=== PATIENT | female | born 1995 | race Caucasian/White ===

== ENCOUNTER 2018-01-16 00:55 | Emergency (ER) | payer BC, OTHER ==
[2018-01-16 01:54] LABS: ABSOLUTE BASOPHILS # (AUTO) 0.1 10^3/uL (0.0-0.2); ABSOLUTE EOSINOPHILS # (AUTO) 0.2 10^3/uL (0.0-0.6); ABSOLUTE LYMPHOCYTES (AUTO) 1.8 10^3/uL (0.5-4.7); ABSOLUTE MONOCYTES (AUTO) 0.4 10^3/uL (0.1-1.4); ABSOLUTE NEUT (AUTO) 4.7 10^3/uL (1.7-8.2); BASOPHILS % (AUTO) 0.8 % (0-2); EOSINOPHILS % (AUTO) 2.4 % (0-6); HEMATOCRIT 34.1 % (36.0-47.0); LYMPHOCYTES % (AUTO) 25.5 % (13-45); MEAN CORPUSCULAR HEMOGLOBIN 31.9 pg (27.0-33.4); MEAN CORPUSCULAR HGB CONC 35.3 g/dL (32.0-36.0); MEAN CORPUSCULAR VOLUME 91 fl (80-97); PLATELET COUNT 218 10^3/uL (150-450); RED BLOOD COUNT 3.76 10^6/uL (3.72-5.28); RED CELL DISTRIBUTION WIDTH 13.6 % (11.5-14.0); SEGMENTED NEUTROPHILS % (AUTO) 65.3 % (42-78); TOTAL CELLS COUNTED % (AUTO) 100 %; WHITE BLOOD COUNT 7.2 10^3/uL (4.0-10.5)
[2018-01-16 02:10] LABS: ALANINE AMINOTRANSFERASE 21 U/L (9-52); ALBUMIN 4.1 g/dL (3.5-5.0); ALKALINE PHOSPHATASE 36 U/L (38-126); ANION GAP 12 (5-19); ASPARTATE AMINO TRANSFERASE 19 U/L (14-36); BILIRUBIN,DIRECT 0.2 mg/dL (0.0-0.4); BILIRUBIN,TOTAL 0.3 mg/dL (0.2-1.3); BLOOD UREA NITROGEN 12 mg/dL (7-20); CALCIUM 9.6 mg/dL (8.4-10.2); CARBON DIOXIDE 23 mmol/L (22-30); CHLORIDE 104 mmol/L (98-107); GLUCOSE 100 mg/dL (75-110); LIPASE 66.3 U/L (23-300); SODIUM 139.2 mmol/L (137-145); TOTAL PROTEIN 6.9 g/dL (6.3-8.2)
[2018-01-16] MEDS ORDERED: NORMAL SALINE 1000 ML 1,000 ML IV ONE (02:56)
[2018-01-16] MEDS ORDERED: METOCLOPRAMIDE HCL INJ/PF 10 MG/2 ML SDV IV ONE (03:01)
--- NOTE | 2018-01-16 03:02 | RADIOLOGY REPORT (SQ) ---
EXAM DESCRIPTION: US TRANSVAGINAL COMPLETED DATE/TME: 01/16/2018 01:24 CLINICAL HISTORY: 22 years Female, , bleeding Comparison: None. TECHNIQUE: Transvaginal. LIMITATIONS: None. FINDINGS: Living intrauterine fetus measures 11w3d with JIMENEZ of 08/14/2018. Cardiac activity is 175-bpm. Herndon-rump length is 4.5-cm. Ovaries not discerned, 3-cm cervical length, and no free fluid. IMPRESSION: Living 1st trimester intrauterine gestation. No evidence of complication.
--- NOTE | 2018-01-16 03:02 | ER Document Report ---
ED GI/ - General Mode of Arrival: Ambulatory Information source: Patient TRAVEL OUTSIDE OF THE [place] IN LAST 30 DAYS: No <KENTON BOO - Last Filed: 01/16/18 03:25> <DAYLIN ARREAGA - Last Filed: 01/16/18 05:37> - General Chief Complaint: Vag Bleeding, +preg <12wks Stated Complaint: ABDOMINAL PAIN Time Seen by Provider: 01/16/18 01:35 Notes: 22-year-old female that is 11 weeks that presents to the emergency department today with complaints of vaginal bleeding and abdominal pain. Patient states that she has had more bleeding than during a normal period. Patient states she has an appointment with OB on . Patient states she has had intercourse this week and had no bleeding after. Patient has had associated vomiting and diarrhea but denies any urinary symptoms or fevers. ( KENTON BOO) - Related Data Allergies/Adverse Reactions: No Known Allergies Allergy (Verified 02/27/16 14:14) Past Medical History - General Information source: Patient - Social History Smoking Status: Never Smoker Cigarette use (# per day): No Frequency of alcohol use: None Drug Abuse: None Lives with: Family Family History: Reviewed & Not Pertinent <KENTON BOO - Last Filed: 01/16/18 03:25> Review of Systems - Review of Systems Constitutional: denies: Fever EENT: No symptoms reported Cardiovascular: No symptoms reported Respiratory: No symptoms reported Gastrointestinal: See HPI, Abdominal pain, Diarrhea, Vomiting Genitourinary: denies: Dysuria Female Genitourinary: See HPI, , Vaginal bleeding, Other - Recent intercourse Musculoskeletal: No symptoms reported Skin: No symptoms reported Hematologic/Lymphatic: No symptoms reported Neurological/Psychological: No symptoms reported -: Yes All other systems reviewed and negative <KENTON BOO - Last Filed: 01/16/18 03:25> Physical Exam <KENTON BOO - Last Filed: 01/16/18 03:25> - Vital signs Interpretation: Normal - General General appearance: Appears well, Alert - HEENT Head: Normocephalic, Atraumatic Eyes: Normal Pupils: PERRL - Respiratory Respiratory status: No respiratory distress Chest status: Nontender Breath sounds: Normal Chest palpation: Normal - Cardiovascular Rhythm: Regular Heart sounds: Normal auscultation Murmur: No - Abdominal Inspection: Normal Distension: No distension Bowel sounds: Normal Tenderness: Tender - Mild suprapubic TTP Organomegaly: No organomegaly - Back Back: Normal, Nontender - Extremities General upper extremity: Normal inspection, Nontender, Normal color, Normal ROM , Normal temperature General lower extremity: Normal inspection, Nontender, Normal color, Normal ROM , Normal temperature, Normal weight bearing. No: Yessica's sign - Neurological Neuro grossly intact: Yes Cognition: Normal Orientation: AAOx4 Paron Coma Scale Eye Opening: Spontaneous Paron Coma Scale Verbal: Oriented Harpal Coma Scale Motor: Obeys Commands Harpal Coma Scale Total: 15 Speech: Normal Motor strength normal: LUE, RUE, LLE, RLE Sensory: Normal - Psychological Associated symptoms: Normal affect, Normal mood - Skin Skin Temperature: Warm Skin Moisture: Dry Skin Color: Normal <DAYLIN ARREAGA - Last Filed: 01/16/18 05:37> - Vital signs Vitals: Temp Pulse Resp BP Pulse Ox 99 F 90 16 128/64 H 100 01/16/18 01:02 01/16/18 01:02 01/16/18 01:02 01/16/18 01:02 01/16/18 01:02 - Genitourinary Notes: Deferred (DAYLIN ARREAGA) Course - Laboratory Result Diagrams: 01/16/18 01:40 01/16/18 01:40 <KENTON BOO - Last Filed: 01/16/18 03:25> - Laboratory Result Diagrams: 01/16/18 01:40 01/16/18 01:40 - Diagnostic Test Radiology reviewed: Reports reviewed <DAYLIN ARREAGA - Last Filed: 01/16/18 05:37> - Re-evaluation Re-evalutation: 01/16/18 Patient is a 22-year-old who comes in complaining of vaginal bleeding and mild suprapubic discomfort. Blood work within normal limits. RhoGam not indicated. Patient denies any urinary symptoms. Urine culture will be sent. He was much better after Reglan and fluids. Patient is to follow-up with her [facility] this week. She has been given a copy of blood work and ultrasound report. She is not to put anything in her vagina until she sees her management specialist. Understands agrees with plan. Would like to go home. Stable for discharge. (DAYLIN ARREAAG) - Vital Signs Vital signs: Temp Pulse Resp BP Pulse Ox 98.6 F 69 18 93/56 L 100 01/16/18 05:06 01/16/18 05:06 01/16/18 05:06 01/16/18 05:06 01/16/18 05:06 - Laboratory Laboratory results interpreted by me: 01/16/18 01/16/18 01/16/18 01:40 01:40 02:47 Hct 34.1 L Alkaline Phosphatase 36 L Beta HCG, Quant 921395.00 H Urine Blood LARGE H Discharge <KENTON BOO - Last Filed: 01/16/18 03:25> <DAYLIN ARREAGA - Last Filed: 01/16/18 05:37> - Discharge Clinical Impression: Bleeding in early Condition: Stable Disposition: HOME, SELF-CARE Instructions: Bleeding During Early ([facility]) Additional Instructions: Follow-up with your [facility] this week. Do not put anything in your vagina until you see your management specialist. Referrals: JOSEFINA LICONA MD [ACTIVE STAFF] - Follow up in 3-5 days Scribe Attestation: 01/16/18 05:37 I personally performed the services described in the documentation, reviewed and edited the documentation which was dictated to the scribe in my presence, and it accurately records my words and actions. (DAYLIN ARREAGA) Scribe Documentation - Scribe Written by Jennifer:: Jennifer Lemus, 01/16/2018 [id number] acting as scribe for :: Altaf <KENTON BOO - Last Filed: 01/16/18 03:25>
[2018-01-16 03:04] LABS: APPEARANCE,URINE CLEAR; BILIRUBIN,URINE NEGATIVE (NEGATIVE); COLOR,URINE STRAW; GLUCOSE, URINE NEGATIVE (NEGATIVE); KETONES,URINE NEGATIVE (NEGATIVE); LEUKOCYTE ESTERASE,URINE NEGATIVE (NEGATIVE); NITRITE,URINE NEGATIVE (NEGATIVE); PROTEIN,URINE NEGATIVE (NEGATIVE); URINE SPECIFIC GRAVITY 1.009; UROBILINOGEN,URINE NEGATIVE mg/dL (<2.0)
[2018-01-16 05:08] VITALS: BP 93/56
== END 2018-01-16 04:57 | disposition home or self-care (01) ==
LOC: ER 00:55
DX: O20.9 Hemorrhage in early pregnancy, unspecified (principal); O21.9 Vomiting of pregnancy, unspecified; O26.891 Other specified pregnancy related conditions, first trimester; R10.30 Lower abdominal pain, unspecified; R19.7 Diarrhea, unspecified; Z3A.11 11 weeks gestation of pregnancy
CPT/HCPCS: 99284; 96361; 96374; 86900; 86901; 36415; 87086; 84702; 83690; 85025; 80053; 81001; 76817; J2765; J7030

== ENCOUNTER 2018-08-04 18:24 | Inpatient (IN) | payer BC, OTHER ==
[2018-08-04] MEDS ORDERED: RINGERS SOLUTION,LACTATED 1,000 ML IV ONE (19:14)
[2018-08-04] MEDS ORDERED: PENICILLIN G POTASSIUM 5,000,000 UNIT in DEXTROSE 5%-WATER 100 ML IV ONE (19:14)
[2018-08-04] MEDS ORDERED: RINGERS SOLUTION,LACTATED 1,000 ML IV PRN (19:14)
[2018-08-04] MEDS ORDERED: PENICILLIN G-K 5 MILLION UNIT VIAL ONE ×2 (19:15→22:34)
[2018-08-04 19:26] LABS: APPEARANCE,URINE CLEAR; BILIRUBIN,URINE NEGATIVE (NEGATIVE); COLOR,URINE YELLOW; GLUCOSE, URINE NEGATIVE (NEGATIVE); KETONES,URINE TRACE mg/dL (NEGATIVE); LEUKOCYTE ESTERASE,URINE SMALL (NEGATIVE); NITRITE,URINE NEGATIVE (NEGATIVE); PROTEIN,URINE NEGATIVE (NEGATIVE); URINE SPECIFIC GRAVITY 1.014; UROBILINOGEN,URINE NEGATIVE mg/dL (<2.0)
[2018-08-04] MEDS ORDERED: MISOPROSTOL 0.2 MG TABLET ONE (19:29)
[2018-08-04] MEDS ORDERED: OXYTOCIN 10 UNIT/ML VIAL ONE (19:29)
[2018-08-04] MEDS ORDERED: LIDOCAINE 1% INJ-PF (10 MG/ML) 30 ML SDV ONE (19:30)
[2018-08-04] MEDS ORDERED: OXYTOCIN/NORMAL SALINE 20 UNIT/1,000 ML RTUINJ ONE (19:30)
[2018-08-04 19:41] LABS: URINE AMPHETAMINES SCREEN NEGATIVE; URINE BARBITURATES SCREEN NEGATIVE; URINE BENZODIAZEPINES SCREEN NEGATIVE; URINE COCAINE SCREEN NEGATIVE; URINE MARIJUANA (THC) SCREEN NEGATIVE; URINE METHADONE SCREEN NEGATIVE; URINE PHENCYCLIDINE SCREEN NEGATIVE
[2018-08-04 19:43] LABS: ABSOLUTE BASOPHILS # (AUTO) 0.1 10^3/uL (0.0-0.2); ABSOLUTE LYMPHOCYTES (AUTO) 1.5 10^3/uL (0.5-4.7); ABSOLUTE MONOCYTES (AUTO) 0.6 10^3/uL (0.1-1.4); ABSOLUTE NEUT (AUTO) 8.4 10^3/uL (1.7-8.2); BASOPHILS % (AUTO) 0.5 % (0-2); EOSINOPHILS % (AUTO) 0.2 % (0-6); HEMATOCRIT 32.9 % (36.0-47.0); HEMOGLOBIN 11.5 g/dL (12.0-15.5); LYMPHOCYTES % (AUTO) 13.9 % (13-45); MEAN CORPUSCULAR HEMOGLOBIN 31.4 pg (27.0-33.4); MEAN CORPUSCULAR VOLUME 90 fl (80-97); MONOCYTES % (AUTO) 5.7 % (3-13); PLATELET COUNT 227 10^3/uL (150-450); RED BLOOD COUNT 3.66 10^6/uL (3.72-5.28); RED CELL DISTRIBUTION WIDTH 13.9 % (11.5-14.0); SEGMENTED NEUTROPHILS % (AUTO) 79.7 % (42-78); TOTAL CELLS COUNTED % (AUTO) 100 %; WHITE BLOOD COUNT 10.5 10^3/uL (4.0-10.5)
[2018-08-04] MEDS ORDERED: OXYTOCIN/NORMAL SALINE 20 UNIT/1,000 ML RTUINJ IV PRN ×2 (20:36→23:27)
[2018-08-04] MEDS ORDERED: ONDANSETRON HCL INJ/PF 4 MG/2 ML SDV IV ONE (21:55)
[2018-08-04] MEDS ORDERED: ONDANSETRON HCL INJ/PF 4 MG/2 ML SDV ONE (21:55)
[2018-08-04] MEDS: PENICILLIN G POTASSIUM 2,500,000 UNIT in DEXTROSE 5%-WATER 50 ML IV SCH (22:45)
--- NOTE | 2018-08-04 22:57 | Admission Physical ---
Datetime Report Generated by CPN: 08/04/2018 22:57 CURRENT ADMISSION Chief Complaint: Uterine Contractions Indication for Induction: Not Applicable Admit Impression : Term, Intrauterine ; Active Labor; Intact Membranes Admit Plan: Admit to Unit; Initiate Labor Protocol ALLERGIES Medication Allergies: No Medication Allergies: No Known Allergies (02/27/2016) Latex: Unknown Food Allergies: N/A Environmental Allergies: N/A OBSTETRICAL HISTORY EDC: 08/08/2018 00:00 : 2 Para: 1 Term: 1 : 0 SAB: 0 IAB: 0 Ectopic: 0 Livin Cesareans: 0 VBACs: 0 Multiple Births: 0 Gestational Diabetes: No Rh Sensitization: No Incompetent Cervix: No CAROLINE: No Infertility: No ART Treatment: No Uterine Anomaly: No IUGR: No Hx Previous C/S: No Macrosomia: No Hx Loss/Stillborn: No PIH: No Hx : No Placenta Previa/Abruption: No Depression/PP Depression: No PTL/PROM: No Post Hemorrhage: No Current Procedures: Ultrasound; NST Obstetrical History Comments: G1 - 2015, , 40.2 weeks, baby boy G2 - Current SEE RECORDS Alcohol: No Marijuana : No Cocaine: No Other Illicit Drugs: No Cigarettes: Never Smoker. [id number] MEDICAL HISTORY Diabetes: No Blood Transfusion: No Pulmonary Disease (Asthma, TB): No Breast Disease: No Hypertension: No Jewel Stripper Surgery: No Heart Disease: No Hosp/Surgery: No Autoimmune Disorder: No Anesthetic Complications: No Kidney Disease: No Abnormal Pap Smear: No Neuro/Epilepsy: No Psychiatric Disorders: No Other Medical Diseases: No Hepatitis/Liver Disease: No Significant Family History: No Varicosities/Phlebitis: No Trauma/Violence : No Thyroid Dysfunction: No INFECTIOUS HISTORY Gonorrhea: No Genital Herpes: No Chlamydia: No Tuberculosis: No Syphilis: No Hepatitis: No HIV/AIDS Exposure: No Rash or Viral Illness: No HPV: No Infectious History Comments: on valtrex for cold sore PHYSICAL EXAM General: Normal HEENT: Normal Neurologic: Normal Thyroid: Deferred Heart: Normal Lungs: Normal Breast: Deferred Back: Normal Abdomen: Normal Genitourinary Exam: Normal Extremities: Normal DTRs: Normal Pelvic Type: Adequate Vital Signs: Reviewed VAGINAL EXAM Dilatation: 4 Effacement: 90 Station: -1 Contraction Comments: q 2-3 MEMBRANES Membranes: Intact FETUS A EGA: 39.3 Monitoring: External US FHR- Baseline: 125 Variability: Moderate 6-25bpm Accelerations: 15X15 Decelerations: None FHR Category: Category I Presentation: Vertex Admit Comment: 23yo at 39+3ega presents for regular uterine ctx. Initially noted minimal variability and what looked like late decelerations. This resolved with IVF fluid and noted cervical change. Pt augmented due to ctx spacing out. GBS pos - PCN given for GBS prophy. Declines epidural - reviewed other pain management with IV meds and pudendal. Pt defers for now. Pelvis proven to 6#14oz. 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 chronic anemia. Anticipate PLANS FOR LABOR AND DELIVERY Labor and Delivery: None Pain Management: Natural Feeding Preference: Breast Benefit of Breast Feed Discussed: Yes Circumcision: N/A INFORMED CONSENT Informed Consent Obtained: Vaginal Delivery; Risks, Benefits and Alternatives Discussed Signature: with User ID: [email or web address]
[2018-08-04] MEDS ORDERED: DIPHENHYDRAMINE HCL 25 MG CAPSULE PO PRN (23:27)
[2018-08-04] MEDS ORDERED: PROMETHAZINE HCL INJ 25 MG/1 ML VIAL IV PRN (23:27)
[2018-08-04] MEDS ORDERED: PROMETHAZINE HCL 25 MG SUPP.RECT PR PRN (23:27)
[2018-08-04] MEDS ORDERED: PSEUDOEPHEDRINE HCL 30 MG TABLET PO PRN (23:27)
[2018-08-04] MEDS ORDERED: NA PHOS,M-B/NA PHOS,DI-BA (ADULT) 133 ML ENEMA PR PRN (23:27)
[2018-08-04] MEDS ORDERED: ACETAMINOPHEN 325 MG TABLET PO PRN (23:27)
[2018-08-04] MEDS ORDERED: DIPH/PERTUSS(ACELL)/TETANUS VAC/PF 0.5 ML SYR (>=10YO) IM PRN (23:27)
[2018-08-04] MEDS ORDERED: ZOLPIDEM TARTRATE 5 MG TABLET PO PRN (23:27)
[2018-08-04] MEDS ORDERED: PROMETHAZINE HCL 25 MG TABLET PO PRN (23:27)
[2018-08-04] MEDS ORDERED: DIBUCAINE 1% OINTMENT 56 GM TP PRN (23:27)
[2018-08-04] MEDS ORDERED: GLYCERIN/WITCH HAZEL LEAF 1 EACH MED..PAD TP PRN (23:27)
[2018-08-04] MEDS ORDERED: MEASLES,MUMPS&RUBELLA VACC/PF 0.5 ML VIAL SUBCUT PRN (23:27)
[2018-08-04] MEDS ORDERED: BENZOCAINE/MENTHOL AEROSOL SPRAY 56 ML TOP PRN (23:27)
[2018-08-04] MEDS ORDERED: ACETAMINOPHEN WITH CODEINE #3 TABLET PO PRN ×2 (23:27)
[2018-08-04] MEDS ORDERED: MAGNESIUM HYDROXIDE SUSP 30 ML UDCUP PO PRN (23:27)
--- NOTE | 2018-08-05 00:38 | Delivery Summary ---
Del Sum A-C Datetime Report Generated by CPN: 08/05/2018 00:37 DELIVERY PERSONNEL DELIVERY PERSONNEL: [id number] Delivery Doctor:: Meghann Avalos MD Labor and Delivery Nurse:: Yolis Treadwell RN Nursery Nurse:: Britta Yu RN Go Cart Mechanic/COMMUNITY DEVELOPMENT MANAGER: Natalya Green, ST MATERNAL INFORMATION Delivery Anesthesia: None Medications After Delivery: Pitocin Drip 20 Units/1000ml NSS Maternal Complications: None Provider Comments: VFI delivered in MARINO presentation. Head delivered and patient contracted legs and moved up bed and ceased pushing. Patient able to regain Raman position and Left shoulder (anterior shoulder) felt to pop under pubic bone with immediately noted delivery of shoulders and body. No perineal lacerations. TIght nuchal cord delivered through. Asked NICU/Nursery to evaluation anterior shoulder. Placenta delivered intact spontaneously. FF at U. Minimal bleeding. Mother and baby stable upon provider leaving the room. LABOR SUMMARY EDC: 08/08/2018 00:00 No. Babies in Womb: 1 Attempted: No Labor Anesthesia: None LABOR INFORMATION Reason for Induction: Not Applicable Onset of Labor: 08/04/2018 20:25 Complete Dilatation: 08/04/2018 22:43 Oxytocin: Augmentation Group B Beta Strep: Positive Antibiotics # of Doses: 2 Antibiotics Time of Last Dose: at delivery Name of Antibiotic Given: PCN Steroids Given: None Reason Steroids Not Administered: Not Applicable MEMBRANES Membranes Rupture Method: Artificial Rupture of Membranes: 08/04/2018 22:21 Length of Rupture (hr): 0.45 Amniotic Fluid Color: Clear Amniotic Fluid Amount: Small Amniotic Fluid Odor: Normal STAGES OF LABOR Stage 1 hr: 2 Stage 1 min: 18 Stage 2 hr: 0 Stage 2 min: 5 Stage 3 hr: 0 Stage 3 min: 5 Total Time in Labor hr: 2 Total Time in Labor min: 28 VAGINAL DELIVERY Episiotomy: None Laceration #1: None Laceration Extension #1: N/A Laceration Repair: Not Applicable Sponge Count Correct: Yes Sharps Count Correct: Yes CSECTION DELIVERY Primary Indication: N/A Secondary Indication: N/A CSection Incidence: N/A Labor: N/A Elective: N/A CSection Incision: N/A Uterine Closure: Double-layer closure BABY A INFORMATION Infant Delivery Date/Time: 08/04/2018 22:48 Method of Delivery: Vaginal Born in Route : No : N/A Forceps: N/A Vacuum Extraction: N/A Shoulder Dystocia : No PRESENTATION/POSITION BABY A Presentation: Cephalic Cephalic Presentation: Vertex Vertex Position: Right Occipital Anterior Breech Presentation: N/A PLACENTA INFORMATION BABY A Placenta Delivery Time : 08/04/2018 22:53 Placenta Method of Delivery: Spontaneous Placenta Status: Delivered SCORES BABY A Heart Rate 1 min: >100 bpm Resp Effort 1 min: Good Cry Reflex Irritability 1 min: Cough or Sneeze or Pulls Away Muscle Tone 1 min: Active Motion Color 1 min: Blue/Pale Resuscitation Effort 1 min: Tactile Stimulation SCORE 1 MIN: 8 Heart Rate 5 min: >100 bpm Resp Effort 5 min: Good Cry Reflex Irritability 5 min: Cough or Sneeze or Pulls Away Muscle Tone 5 min: Active Motion Color 5 min: Body [place], Extremities Blue Resuscitation Effort 5 min: N/A SCORE 5 MIN: 9 INFORMATION BABY A Gestational Age at Delivery: 39.3 Gestational Status: Full Term- 39- 40.6 Weeks Infant Outcome : Liveborn Condition : Stable Sex: Female IDENTIFICATION BABY A Infant Verification Date/Time: 08/04/2018 22:59 ID Band Number: [id number] Mother's Name Verified: Yes Infant RN Verifying Infant: NDoyle RN KAndrews RN WEIGHT/LENGTH BABY A Birthweight (gm): 3167 Infant Weight (lb): 7 Weight (oz): 0 Length (in): 20.00 Infant Length (cm): 50.80 CORD INFORMATION BABY A No. Cord Vessels: 3 Nuchal Cord : Around Neck x1, Tight Cord Blood Taken: Yes-For Storage (Mom's Blood type +) Infant Suction: None ASSESSMENT BABY A Infant Complications: Multiple Variable Decels Physical Findings at Delivery: Molding of the Head Physical Findings- Other: MD felt left shoulder "pop" when it came under the pubic bone. Respirations: Appears Normal Skin to Skin: Yes Anodic Treater/ALS Called : No Infant Care By: Ana Luisa Yu RN Transferred To: Remains with Mother BABY B INFORMATION : N/A SIGNATURES Signature: with User ID: [email or web address]
[2018-08-05] MEDS: PENICILLIN G POTASSIUM 2,500,000 UNIT in DEXTROSE 5%-WATER 50 ML IV SCH (04:24)
[2018-08-05] MEDS: IBUPROFEN 800 MG TABLET PO SCH ×3 (06:55→22:19)
[2018-08-05 07:03] LABS: HEMATOCRIT 31.1 % (36.0-47.0); HEMOGLOBIN 10.7 g/dL (12.0-15.5); MEAN CORPUSCULAR HEMOGLOBIN 30.7 pg (27.0-33.4); MEAN CORPUSCULAR HGB CONC 34.4 g/dL (32.0-36.0); MEAN CORPUSCULAR VOLUME 89 fl (80-97); PLATELET COUNT 214 10^3/uL (150-450); RED BLOOD COUNT 3.49 10^6/uL (3.72-5.28); RED CELL DISTRIBUTION WIDTH 14.3 % (11.5-14.0)
[2018-08-05] MEDS: PRENATAL VITAMIN W DHA CAPSULE PO SCH (09:49)
[2018-08-05] MEDS: FAMOTIDINE 20 MG TABLET PO SCH ×2 (09:49→22:19)
[2018-08-05] MEDS: FERROUS SULFATE 325 MG TABLET PO SCH ×2 (09:49→18:03)
[2018-08-05] MEDS: DOCUSATE SODIUM 100 MG CAPSULE PO SCH ×2 (09:49→18:03)
[2018-08-05] MEDS: SENNOSIDES/DOCUSATE 8.6-50 MG 1 EACH TABLET PO SCH (09:49)
--- NOTE | 2018-08-05 11:50 | PDOC PROGRESS REPORT ---
Subjective-OB Progress Note for:: 08/05/18 Subjective: Pt doing well, no concerns. She reports light bleeding, reg diet and voiding well. Physical Exam (OB) Vital Signs: Temp Pulse Resp BP Pulse Ox 98.2 F 72 18 137/67 H 97 08/05/18 08:00 08/05/18 08:00 08/05/18 08:00 08/05/18 08:00 08/05/18 08:00 Intake & Output 08/04/18 08/05/18 08/06/18 06:59 06:59 06:59 Weight 58.9 kg - Lochia Lochia Amount: Scant < 10 ml Lochia Color: Rubra/Red - Abdomen Description: Soft Fundal Description: Firm Fundal Height: u/u - u/2 Objective-Diagnostic Laboratory: 08/05/18 06:50 08/04/18 08/04/18 08/04/18 18:35 19:31 19:31 WBC 10.5 RBC 3.66 L Hgb 11.5 L Hct 32.9 L MCV 90 MCH 31.4 MCHC 35.0 RDW 13.9 Plt Count 227 Seg Neutrophils % 79.7 H Lymphocytes % 13.9 Monocytes % 5.7 Eosinophils % 0.2 Basophils % 0.5 Absolute Neutrophils 8.4 H Absolute Lymphocytes 1.5 Absolute Monocytes 0.6 Absolute Eosinophils 0.0 Absolute Basophils 0.1 Urine Color YELLOW Urine Appearance CLEAR Urine pH 7.0 Ur Specific [place] 1.014 Urine Protein NEGATIVE Urine Glucose (UA) NEGATIVE Urine Ketones TRACE H Urine Blood SMALL H Urine Nitrite NEGATIVE Ur Leukocyte Esterase SMALL H Blood Type A POSITIVE Antibody Screen NEGATIVE 08/05/18 06:50 WBC 14.0 H RBC 3.49 L Hgb 10.7 L Hct 31.1 L MCV 89 MCH 30.7 MCHC 34.4 RDW 14.3 H Plt Count 214 Seg Neutrophils % Lymphocytes % Monocytes % Eosinophils % Basophils % Absolute Neutrophils Absolute Lymphocytes Absolute Monocytes Absolute Eosinophils Absolute Basophils Urine Color Urine Appearance Urine pH Ur Specific [place] Urine Protein Urine Glucose (UA) Urine Ketones Urine Blood Urine Nitrite Ur Leukocyte Esterase Blood Type Antibody Screen Assessment and Plan(PN) - Assessment and Plan (1) Vaginal delivery Is this a current diagnosis for this admission?: Yes (2) Anemia Qualifiers: Anemia type: iron deficiency Iron deficiency anemia type: unspecified iron deficiency Qualified Code(s): D50.9 - Iron deficiency anemia, unspecified Is this a current diagnosis for this admission?: Yes - Time Spent with Patient Time with patient: Less than 15 minutes Medications reviewed and adjusted accordingly: Yes - Disposition Anticipated Discharge: Home Within: within 24 hours
[2018-08-05] MEDS: PENICILLIN G-K 5 MILLION UNIT VIAL IV SCH ×2 (20:58→20:59)
[2018-08-06] MEDS: IBUPROFEN 800 MG TABLET PO SCH (06:06)
[2018-08-06] MEDS: PENICILLIN G-K 5 MILLION UNIT VIAL IV SCH ×2 (06:06→06:07)
--- NOTE | 2018-08-06 08:20 | PDOC PROGRESS REPORT ---
Subjective Progress Note for:: 08/06/18 Subjective:: Patient states that she feels good; decreasing lochia. Patient denies chest pain, shortness of breath, fever/chills or nausea/vomiting. She is ambulating and voiding without difficulty. Reason For Visit: Physical Exam - Physical Exam Vital Signs: Temp Pulse Resp BP Pulse Ox 98.2 F 62 16 124/71 99 08/06/18 07:47 08/06/18 07:47 08/06/18 07:47 08/06/18 07:47 08/06/18 07:47 Intake & Output 08/05/18 08/06/18 08/07/18 06:59 06:59 06:59 Weight 58.9 kg General appearance: PRESENT: no acute distress Respiratory exam: PRESENT: clear to auscultation elvira Cardiovascular exam: PRESENT: RRR GI/Abdominal exam: PRESENT: normal bowel sounds, soft - Fundus firm and below umbilicus Extremities exam: ABSENT: calf tenderness, clubbing, full ROM, joint swelling, pedal edema, tenderness, +1 edema, +2 edema, other Result Laboratory Results: 08/05/18 06:50 Assessment & Plan - Diagnosis (1) Anemia Qualifiers: Anemia type: iron deficiency Iron deficiency anemia type: unspecified iron deficiency Qualified Code(s): D50.9 - Iron deficiency anemia, unspecified Is this a current diagnosis for this admission?: Yes (2) Vaginal delivery Is this a current diagnosis for this admission?: Yes - Time Time Spent with patient: Less than 15 minutes - Plan Summary Plan Summary: 1. continue care
[2018-08-06] MEDS: FAMOTIDINE 20 MG TABLET PO SCH (09:25)
[2018-08-06] MEDS: PRENATAL VITAMIN W DHA CAPSULE PO SCH (09:25)
[2018-08-06] MEDS: DOCUSATE SODIUM 100 MG CAPSULE PO SCH (09:25)
[2018-08-06] MEDS: FERROUS SULFATE 325 MG TABLET PO SCH (09:25)
[2018-08-06] MEDS: SENNOSIDES/DOCUSATE 8.6-50 MG 1 EACH TABLET PO SCH (09:25)
--- NOTE | 2018-08-06 11:08 | PDOC DISCHARGE SUMMARY ---
Addendum entered and electronically signed by KOKO STAPLES CNM 08/10/18 17:18: Final Diagnosis Discharge Date: 08/06/18 - Final Diagnosis (1) Anemia Is this a current diagnosis for this admission?: Yes (2) GBS (group B Streptococcus carrier), +RV culture, currently Is this a current diagnosis for this admission?: Yes (3) Vaginal delivery Is this a current diagnosis for this admission?: Yes Original Note: Final Diagnosis Discharge Date: 08/06/18 Discharge Data - Discharge Medication Home Medications: Ferrous Sulfate [Iron] 1 tab PO QAM 02/26/16 Pnv No.95/Ferrous Fum/Folic AC [ Formula Tablet] 1 tab PO QAM 02/26/16 Valacyclovir HCl [Valtrex] 2,000 mg PO BID 08/04/18 Gestational Age: 39.3 Reason(s) for Admission: Group B Strep Positive - AROM, augmentation Procedures: NST, Ultrasound Intrapartum Procedure(s): Spontaneous Vaginal Delivery Intrapartum Procedure Note: multiple variables, tight nuchal cord - Data Baby 1 Female at 1 minute: 8 at 5 minutes: 9 Weight: 3.175 kg Home with Mother: Yes Complications: No - Diagnosis Test Laboratory: Temp Pulse Resp BP Pulse Ox 98.2 F 62 16 124/71 99 08/06/18 07:47 08/06/18 07:47 08/06/18 07:47 08/06/18 07:47 08/06/18 07:47 08/04/18 08/04/18 08/05/18 18:35 19:31 06:50 RBC 3.66 L 3.49 L Hgb 11.5 L 10.7 L Hct 32.9 L 31.1 L Urine Opiates Screen NEGATIVE - Discharge information/Instructions Discharge Activity: Activity As Tolerated, No Lifting Over 10 Pounds, No Lifting/Push/Pulling, Pelvic Rest Discharge Diet: As Tolerated, Regular Disposition: HOME, SELF-CARE Follow up with: [facility] in: 2, Weeks
[2018-08-06 12:27] VITALS: BP 130/71
== END 2018-08-06 13:30 | disposition home or self-care (01) | DRG 806 ==
LOC: LC 18:24 → LR 19:40 → 2S 08-05 01:00
PROVIDERS: ADMIT Student in an Organized Health Care Education/Training Program; ATTEND Student in an Organized Health Care Education/Training Program
PROC: 10E0XZZ Delivery of Products of Conception, External Approach (ICD-10-PCS; principal; 2018-08-04)
PROC: 4A1HX4Z Monitoring of Products of Conception, Cardiac Electrical Activity, External Approach (ICD-10-PCS; 2018-08-04)
PROC: 10907ZC Drainage of Amniotic Fluid, Therapeutic from Products of Conception, Via Natural or Artificial Opening (ICD-10-PCS; 2018-08-04)
DX: O76 Abnormality in fetal heart rate and rhythm complicating labor and delivery (principal); O98.52 Other viral diseases complicating childbirth; Z37.0 Single live birth; O99.834 Other infection carrier state complicating childbirth; O99.824 Streptococcus B carrier state complicating childbirth; O69.1XX0 Labor and delivery complicated by cord around neck, with compression, not applicable or unspecified; B00.9 Herpesviral infection, unspecified; O99.02 Anemia complicating childbirth; Z3A.39 39 weeks gestation of pregnancy; D50.9 Iron deficiency anemia, unspecified
CPT/HCPCS: 36415; 80307; 81005; 84112; 85025; 85027; 86592; 86850; 86900; 86901; J2405; J2540; J2590; J3490

== ENCOUNTER 2020-04-23 09:10 | Outpatient (CLI) | payer BC, OTHER ==
--- NOTE | 2020-04-23 09:49 | Non Stress Test Report ---
Non Stress Test Datetime Report Generated by CPN: 04/23/2020 09:49 DEMOGRAPHIC EGA NST: 38.0 INDICATION Indication for Study (NST) Other: sent from office for NST Indication for Study (NST) Other: sent from office for NST VITAL SIGNS Temperature - NST: 97.3 Temperature - NST: 97.3 Pulse - NST: 89 MONITORING Monitor Explained: Monitor Explained; Test Explained; Patient Verbalized Understanding Monitor Explained: Monitor Explained; Test Explained; Patient Verbalized Understanding Time on Monitor: 04/23/2020 09:20 Time on Monitor: 04/23/2020 09:20 Time off Monitor: 04/23/2020 09:45 NST Duration: 25 NST INTERVENTIONS NST Interventions: None NST Interventions: PO Hydration Physician Notified NST: Claribel Sandoval CNM Physician Notified NST: NSara BRIAN Sandoval BABY A: [id number] BABY A Movement : Present Contraction Frequency : 0 FHR Baseline : 135 Accelerations : 15X15 Decelerations : None Variability : Moderate 6-25bpm NST Review: Meets Criteria for Reactive NST NST Review and Verified By : Sony Rodarte RN NST Results: Reactive NST REPORT Report Trigger: Send Report
--- NOTE | 2020-04-23 11:18 | RADIOLOGY REPORT (SQ) ---
EXAM DESCRIPTION: U/S OB LIMITED IMAGES COMPLETED DATE/TIME: 04/23/2020 10:46 am REASON FOR STUDY: growth US COMPARISON: None. TECHNIQUE: Limited transabdominal grayscale ultrasound for evaluation of specific requested obstetri john parameters. LIMITATIONS: None. FINDINGS: FHR: 173 beats per minute. PRESENTATION: Cephalic. PLACENTA: Not assessed ANATOMY: Estimated gestational age is 35 weeks 2 days. Estimated weight is 2514 g. OTHER: Estimated due date is 05/26/2020. Estimated weight percentile is 1%. IMPRESSION: LIMITED OBSTETRICAL ULTRASOUND WITH MEASURED PARAMETERS DELINEATED ABOVE. Trimester of : Third trimester - 28 weeks to delivery. TECHNICAL DOCUMENTATION: JOB ID: [id number] 2010 [employer]- All Rights Reserved Reading location - IP/workstation name: [email or web address]
== END 2020-04-23 11:16 | disposition home or self-care (01) ==
LOC: LC 09:10
PROVIDERS: ATTEND Obstetrics & Gynecology
DX: Z34.83 Encounter for supervision of other normal pregnancy, third trimester (principal); Z3A.38 38 weeks gestation of pregnancy
CPT/HCPCS: 59025; 76815; 94760

== ENCOUNTER 2020-04-30 08:05 | Inpatient (IN) | payer BC, OTHER ==
[2020-04-30] MEDS ORDERED: MISOPROSTOL 0.2 MG TABLET ONE (08:10)
[2020-04-30] MEDS ORDERED: OXYTOCIN 10 UNIT/ML VIAL ONE (08:10)
[2020-04-30] MEDS ORDERED: LIDOCAINE 1% INJ-PF (10 MG/ML) 30 ML SDV ONE (08:11)
[2020-04-30] MEDS ORDERED: OXYTOCIN/0.9 % SODIUM CHLORIDE 30 UNIT/500 ML RTUINJ ONE (08:11)
[2020-04-30] MEDS ORDERED: RINGERS SOLUTION,LACTATED 1,000 ML IV ONE (08:14)
[2020-04-30] MEDS ORDERED: RINGERS SOLUTION,LACTATED 1,000 ML IV PRN (08:14)
[2020-04-30 08:41] LABS: ABSOLUTE LYMPHOCYTES (AUTO) 1.5 10^3/uL (0.5-4.7); ABSOLUTE MONOCYTES (AUTO) 0.4 10^3/uL (0.1-1.4); ABSOLUTE NEUT (AUTO) 4.6 10^3/uL (1.7-8.2); BASOPHILS % (AUTO) 0.6 % (0-2); EOSINOPHILS % (AUTO) 0.6 % (0-6); HEMATOCRIT 30.5 % (36.0-47.0); HEMOGLOBIN 10.3 g/dL (12.0-15.5); LYMPHOCYTES % (AUTO) 23.3 % (13-45); MEAN CORPUSCULAR HGB CONC 33.9 g/dL (32.0-36.0); MEAN CORPUSCULAR VOLUME 86 fl (80-97); MONOCYTES % (AUTO) 5.7 % (3-13); PLATELET COUNT 182 10^3/uL (150-450); RED BLOOD COUNT 3.55 10^6/uL (3.72-5.28); RED CELL DISTRIBUTION WIDTH 13.5 % (11.5-14.0); SEGMENTED NEUTROPHILS % (AUTO) 69.8 % (42-78); TOTAL CELLS COUNTED % (AUTO) 100 %; WHITE BLOOD COUNT 6.6 10^3/uL (4.0-10.5)
[2020-04-30 08:42] LABS: APPEARANCE,URINE CLOUDY; BILIRUBIN,URINE NEGATIVE (NEGATIVE); COLOR,URINE AMBER; GLUCOSE, URINE NEGATIVE (NEGATIVE); KETONES,URINE NEGATIVE (NEGATIVE); LEUKOCYTE ESTERASE,URINE LARGE (NEGATIVE); NITRITE,URINE NEGATIVE (NEGATIVE); PROTEIN,URINE 30 mg/dL (NEGATIVE); URINE SPECIFIC GRAVITY 1.026
[2020-04-30] MEDS ORDERED: OXYTOCIN/0.9 % SODIUM CHLORIDE 30 UNIT/500 ML RTUINJ IV PRN ×2 (09:24→19:23)
--- NOTE | 2020-04-30 09:24 | Admission Physical ---
Datetime Report Generated by [facility]: 04/30/2020 09:23 CURRENT ADMISSION Indication for Induction- Other: arrythmia noted at PNV, pt had cardiology work-up. ECHO showed, large fossa ovalis, increased cardiac output, elevated aortic and pulmonary flow velocities. Admit Impression : Term, Intrauterine Admit Plan: Admit to Unit; Initiate Labor Induction Protocol ALLERGIES Medication Allergies: No Medication Allergies: No Known Allergies (04/30/2020) Latex: Unknown (Annotations: Data stored by CPN on behalf of user) OBSTETRICAL HISTORY EDC: 05/07/2020 00:00 : 3 Para: 2 Term: 2 : 0 SAB: 0 IAB: 0 Ectopic: 0 Livin Cesareans: 0 VBACs: 0 Multiple Births: 0 Gestational Diabetes: No Rh Sensitization: No Incompetent Cervix: No CAROLINE: No Infertility: No ART Treatment: No Uterine Anomaly: No IUGR: No Hx Previous C/S: No Macrosomia: No Hx Loss/Stillborn: No PIH: No Hx : No Placenta Previa/Abruption: No Depression/PP Depression: No PTL/PROM: No Post Hemorrhage: No Current Procedures: Ultrasound; NST; Doppler Flow Study Obstetrical History Comments: G1 - 02/27/16 40.2wk male [id number] G2 - 08/04/18 39.3wk female 7lb0oz G3 - current;increased cardiac output SEE RECORDS Alcohol: No Marijuana : No Cocaine: No Other Illicit Drugs: No Cigarettes: Never Smoker. [id number] MEDICAL HISTORY Diabetes: No Blood Transfusion: No Pulmonary Disease (Asthma, TB): No Breast Disease: No Hypertension: No Deputy K 9 Surgery: No Heart Disease: No Hosp/Surgery: No Autoimmune Disorder: No Anesthetic Complications: No Kidney Disease: No Abnormal Pap Smear: No Neuro/Epilepsy: No Psychiatric Disorders: No Other Medical Diseases: No Hepatitis/Liver Disease: No Significant Family History: No Varicosities/Phlebitis: No Trauma/Violence : No Thyroid Dysfunction: No INFECTIOUS HISTORY Gonorrhea: No Genital Herpes: No Chlamydia: No Tuberculosis: No Syphilis: No Hepatitis: No HIV/AIDS Exposure: No Rash or Viral Illness: No HPV: No PHYSICAL EXAM General: Normal HEENT: Normal Neurologic: Normal Thyroid: Normal Heart: Normal Lungs: Normal Breast: Normal Back: Normal Abdomen: Normal Genitourinary Exam: Normal Extremities: Normal DTRs: Normal Pelvic Type: Adequate Vital Signs: Reviewed MEMBRANES Membranes: Intact FETUS A Monitoring: External US FHR- Baseline: 135 Variability: Moderate 6-25bpm Accelerations: 15X15 Decelerations: None FHR Category: Category I Admit Comment: at 39 wks presents for IOL. Pt doing well, no complaints. GBS negative. Plan for Pitocin, w/ AROM and epidural if pt desires. Plan to have Peds present at delivery. EFW 7+10. Dr Hinojosa is the Attending MD today and agrees w/ plan of care PLANS FOR LABOR AND DELIVERY Labor and Delivery: None Pain Management: Natural Feeding Preference: Breast Benefit of Breast Feed Discussed: Yes Circumcision: Yes INFORMED CONSENT Assignment: Rica Hinojosa MD Signature: with User ID: Alena : with User ID: [email or web address]
--- NOTE | 2020-04-30 09:31 | Admission Physical ---
Datetime Report Generated by [facility]: 04/30/2020 09:31 CURRENT ADMISSION Indication for Induction- Other: arrythmia noted at PNV, pt had cardiology work-up. ECHO showed, large fossa ovalis, increased cardiac output, elevated aortic and pulmonary flow velocities. Admit Impression : Term, Intrauterine Admit Plan: Admit to Unit; Initiate Labor Induction Protocol ALLERGIES Medication Allergies: No Medication Allergies: No Known Allergies (04/30/2020) Latex: Unknown (Annotations: Data stored by CPN on behalf of user) OBSTETRICAL HISTORY EDC: 05/07/2020 00:00 : 3 Para: 2 Term: 2 : 0 SAB: 0 IAB: 0 Ectopic: 0 Livin Cesareans: 0 VBACs: 0 Multiple Births: 0 Gestational Diabetes: No Rh Sensitization: No Incompetent Cervix: No CAROLINE: No Infertility: No ART Treatment: No Uterine Anomaly: No IUGR: No Hx Previous C/S: No Macrosomia: No Hx Loss/Stillborn: No PIH: No Hx : No Placenta Previa/Abruption: No Depression/PP Depression: No PTL/PROM: No Post Hemorrhage: No Current Procedures: Ultrasound; NST; Doppler Flow Study Obstetrical History Comments: G1 - 02/27/16 40.2wk male 7th81ry G2 - 08/04/18 39.3wk female 7lb0oz G3 - current;increased cardiac output SEE RECORDS Alcohol: No Marijuana : No Cocaine: No Other Illicit Drugs: No Cigarettes: Never Smoker. [id number] MEDICAL HISTORY Diabetes: No Blood Transfusion: No Pulmonary Disease (Asthma, TB): No Breast Disease: No Hypertension: No Spiral Tube Winder Surgery: No Heart Disease: No Hosp/Surgery: No Autoimmune Disorder: No Anesthetic Complications: No Kidney Disease: No Abnormal Pap Smear: No Neuro/Epilepsy: No Psychiatric Disorders: No Other Medical Diseases: No Hepatitis/Liver Disease: No Significant Family History: No Varicosities/Phlebitis: No Trauma/Violence : No Thyroid Dysfunction: No INFECTIOUS HISTORY Gonorrhea: No Genital Herpes: No Chlamydia: No Tuberculosis: No Syphilis: No Hepatitis: No HIV/AIDS Exposure: No Rash or Viral Illness: No HPV: No PHYSICAL EXAM General: Normal HEENT: Normal Neurologic: Normal Thyroid: Normal Heart: Normal Lungs: Normal Breast: Normal Back: Normal Abdomen: Normal Genitourinary Exam: Normal Extremities: Normal DTRs: Normal Pelvic Type: Adequate Vital Signs: Reviewed MEMBRANES Membranes: Intact FETUS A Monitoring: External US FHR- Baseline: 135 Variability: Moderate 6-25bpm Accelerations: 15X15 Decelerations: None FHR Category: Category I Admit Comment: correction, EFW 6 lbs, typo on the admission note. PLANS FOR LABOR AND DELIVERY Labor and Delivery: None Pain Management: Natural Feeding Preference: Breast Benefit of Breast Feed Discussed: Yes Circumcision: Yes INFORMED CONSENT Assignment: Rica Hinojosa MD Signature: with User ID: Alena : with User ID: Alena
[2020-04-30 10:14] LABS: URINE AMPHETAMINES SCREEN NEGATIVE; URINE BARBITURATES SCREEN NEGATIVE; URINE BENZODIAZEPINES SCREEN NEGATIVE; URINE COCAINE SCREEN NEGATIVE; URINE MARIJUANA (THC) SCREEN NEGATIVE; URINE METHADONE SCREEN NEGATIVE; URINE PHENCYCLIDINE SCREEN NEGATIVE
--- NOTE | 2020-04-30 16:33 | L&D Progress Notes ---
PROGRESS NOTES Datetime Report Generated by CPN: 04/30/2020 16:33 PROGRESS NOTE Impression: Reassuring Heart Rate Procedures: Artificial ROM; Sterile Speculum Exam Plan: Continue Present Management; Induction Vital Signs : Reviewed Comment: Pitocin infusing, pt remains comfortable. VE 4/70/-1, AROM w/ clear fluid noted. Pt may get an epidural if she desires. Position changes encouraged. Continue w/ Pitocin IOL, Dr Hinojosa updated on pts status LAST VAGINAL EXAM-NURSING Nursing Exam Dilitation: 4.0 Nursing Exam Effacement: 70 Nursing Exam Station: -1 Nursing Exam Contractions: pt up to BR MEMBRANES Membranes: Ruptured Amniotic Fluid Color: Clear FETUS A FHR - Baseline: 125 Monitoring: External US Variability: Moderate 6-25bpm Accelerations: 15X15 Decelerations: None FHR Category: Category I SIGNATURE SIGNATURE: [id number];[id number];14,[id number] Assignment: Rica Hinojosa MD Signature: with User ID: [email or web address] : with User ID: Alena
[2020-04-30] MEDS ORDERED: NALBUPHINE HCL INJ 10 MG/1 ML AMPULE INJ ONE (18:28)
[2020-04-30] MEDS ORDERED: PROMETHAZINE HCL INJ 25 MG/1 ML VIAL IV ONE (18:28)
[2020-04-30] MEDS ORDERED: NALBUPHINE HCL INJ 10 MG/1 ML AMPULE ONE (18:29)
[2020-04-30] MEDS ORDERED: PROMETHAZINE HCL INJ 25 MG/1 ML VIAL ONE (18:29)
[2020-04-30] MEDS ORDERED: MAGNESIUM HYDROXIDE SUSP 30 ML UDCUP PO PRN (19:23)
[2020-04-30] MEDS ORDERED: ZOLPIDEM TARTRATE 5 MG TABLET PO PRN (19:23)
[2020-04-30] MEDS ORDERED: ACETAMINOPHEN 325 MG TABLET PO PRN (19:23)
[2020-04-30] MEDS ORDERED: ACETAMINOPHEN 650 MG SUPP.RECT PR PRN (19:23)
[2020-04-30] MEDS ORDERED: PROMETHAZINE HCL 25 MG SUPP.RECT PR PRN (19:23)
[2020-04-30] MEDS ORDERED: PROMETHAZINE HCL INJ 25 MG/1 ML VIAL IV PRN (19:23)
[2020-04-30] MEDS ORDERED: BENZOCAINE/MENTHOL AEROSOL SPRAY 56 ML TOP PRN (19:23)
[2020-04-30] MEDS ORDERED: DIBUCAINE 1% OINTMENT 28 GM TP PRN (19:23)
[2020-04-30] MEDS ORDERED: GLYCERIN/WITCH HAZEL LEAF 1 EACH MED..WIPE TP PRN (19:23)
[2020-04-30] MEDS ORDERED: ACETAMINOPHEN WITH CODEINE #3 TABLET PO PRN ×2 (19:23)
[2020-04-30] MEDS ORDERED: PSEUDOEPHEDRINE HCL 30 MG TABLET PO PRN (19:23)
[2020-04-30] MEDS ORDERED: MEASLES,MUMPS&RUBELLA VACC/PF 0.5 ML VIAL SUBCUT PRN (19:23)
[2020-04-30] MEDS ORDERED: NA PHOS,M-B/NA PHOS,DI-BA (ADULT) 133 ML ENEMA PR PRN (19:23)
[2020-04-30] MEDS ORDERED: DIPHENHYDRAMINE HCL 25 MG CAPSULE PO PRN (19:23)
[2020-04-30] MEDS ORDERED: PROMETHAZINE HCL 25 MG TABLET PO PRN (19:23)
[2020-04-30] MEDS ORDERED: DIPH/PERTUSS(ACELL)/TETANUS VAC/PF 0.5 ML SYR (>=10YO) IM PRN (19:23)
--- NOTE | 2020-04-30 19:46 | Warning Signs in Babies ---
VOD Warning Signs Datetime Report Generated by [facility]: 04/30/2020 19:46 VOD#608 -Warning Signs in Babies: Viewed with Parent(s)/Family (04/23/2020 09:16:Jennifer Jorge RN)
[2020-04-30] MEDS ORDERED: METHYLERGONOVINE MALEATE 0.2 MG TABLET ONE (19:58)
[2020-04-30] MEDS ORDERED: IBUPROFEN 800 MG TABLET ONE (20:17)
--- NOTE | 2020-04-30 22:42 | Delivery Summary ---
Del Sum A-C Datetime Report Generated by CPN: 04/30/2020 22:42 DELIVERY PERSONNEL DELIVERY PERSONNEL: [id number] Delivery Doctor:: Rica Hinojosa MD Labor and Delivery Nurse:: Edie Contreras RNtin stacker Nurse:: Jennifer Jorge RN Neonatal Nurse Practitioner:: GENEVA Kothari Nursery Nurse:: Valeria Rangel RN Remediation Consultant/PROFESSOR OF EARLY CHILDHOOD EDUCATION: Mel Farmer, INTENSIVE CARE UNIT NURSE MATERNAL INFORMATION Delivery Anesthesia: None Medications After Delivery: Pitocin 30 Units in 500ml NS/D5W Delivery QBL: 200 Maternal Complications: None Provider Comments: Called to patients room as she was complete and +3 station with urge to push. She pushed through two contractions and a viable male was delivered over an intact perineum. After delivery of the head, a nuchal cord x1 was noted: tight but able to deliver through. SHoulder dystocia for 30 seconds and did not resolve with Raman but did immediately resolve with suprapubic pressure. After this the rest of the body delivered easliy. Infant was vigorous. Cord clamping delayed for 30 seconds. After cord clamped and cut- placed skin to skin with mother. Both infant and mother stable. LABOR SUMMARY EDC: 05/07/2020 00:00 No. Babies in Womb: 1 Attempted: No Labor Anesthesia: IV Sedation LABOR INFORMATION Reason for Induction: Other Reason for Induction- Other: increased cardiac output Onset of Labor: 04/30/2020 16:03 Complete Dilatation: 04/30/2020 19:02 Oxytocin: Induction Group B Beta Strep: Negative Antibiotics # of Doses: 0 Steroids Given: None Reason Steroids Not Administered: Not Applicable MEMBRANES Membranes Rupture Method: Artificial Rupture of Membranes: 04/30/2020 16:03 Length of Rupture (hr): 3.10 Amniotic Fluid Color: Clear Amniotic Fluid Amount: Small Amniotic Fluid Odor: Normal STAGES OF LABOR Stage 1 hr: 2 Stage 1 min: 59 Stage 2 hr: 0 Stage 2 min: 7 Stage 3 hr: 0 Stage 3 min: 4 Total Time in Labor hr: 3 Total Time in Labor min: 10 VAGINAL DELIVERY Episiotomy: None Laceration #1: None Laceration Extension #1: N/A Laceration Repair: Not Applicable Sponge Count Correct: N/A Sharps Count Correct: N/A CSECTION DELIVERY Primary Indication: N/A CSection Incidence: N/A Labor: N/A Elective: N/A CSection Incision: N/A BABY A INFORMATION Delivery Date/Time: 04/30/2020 19:09 Method of Delivery: Vaginal Nurse Controlled Delivery: No Born in Route : No : N/A Forceps: N/A Vacuum Extraction: N/A Shoulder Dystocia : Yes SHOULDER DYSTOCIA BABY A Delivery of Head: 04/30/2020 19:08 Time Head to Delivery : 1.0 1st Intervention to Resolve: McRobert's Maneuver 2nd Intervention to Resolve: Suprapubic Pressure Verify NO Fundal Pressure: No Fundal Pressure Applied Arm Under Symphisis at Del: Left PRESENTATION/POSITION BABY A Presentation: Cephalic Cephalic Presentation: Vertex Vertex Position: Right Occipital Anterior Breech Presentation: N/A PLACENTA INFORMATION BABY A Placenta Delivery Time : 04/30/2020 19:13 Placenta Method of Delivery: Spontaneous Placenta Status: Delivered SCORES BABY A Heart Rate 1 min: >100 bpm Resp Effort 1 min: Good Cry Reflex Irritability 1 min: Cough or Sneeze or Pulls Away Muscle Tone 1 min: Active Motion Color 1 min: Blue/Pale Resuscitation Effort 1 min: Tactile Stimulation SCORE 1 MIN: 8 Heart Rate 5 min: >100 bpm Resp Effort 5 min: Good Cry Reflex Irritability 5 min: Cough or Sneeze or Pulls Away Muscle Tone 5 min: Active Motion Color 5 min: Body Hewitt, Extremities Blue Resuscitation Effort 5 min: N/A SCORE 5 MIN: 9 Resuscitation Effort 10 min: N/A INFANT INFORMATION BABY A Gestational Age at Delivery: 39.0 Gestational Status: Full Term- 39- 40.6 Weeks Infant Outcome : Liveborn Infant Condition : Stable Sex: Male IDENTIFICATION BABY A Verification Date/Time: 04/30/2020 21:07 ID Band Number: [id number] Mother's Name Verified: Yes Infant RN Verifying Infant: Rl Jorge RN Additional Verifying Personnel: D Bellavance RN WEIGHT/LENGTH BABY A Infant Birthweight (gm): 3070 Weight (lb): 6 Infant Weight (oz): 12 Length (in): 19.00 Length (cm): 48.26 CORD INFORMATION BABY A No. Cord Vessels: 3 Nuchal Cord : Around Neck x1, Tight Cord Blood Taken: Yes-For Storage (Mom's Blood type +) Suction: None ASSESSMENT BABY A Complications: None Physical Findings at Delivery: Within Normal Limits Respirations: Appears Normal Skin to Skin: Yes Skin to Skin Time (min): 60 Scrap Preparer/ALS Called : No Care By: GENEVA Disla Transferred To: Remains with Mother BABY B INFORMATION : N/A SIGNATURES Signature: with User ID: Kacy : with User ID: Kacy
--- NOTE | 2020-04-30 22:42 | Birth Certificate Data ---
Cert Data Datetime Report Generated by CPN: 04/30/2020 22:42 CERTIFICATE DATA Delivery Provider: Rica Hinojosa MD (04/23/2020 09:16:TRACY Kramer) 47a. Care: Yes (04/23/2020 09:16:TRACY Kramer) 47b. Date of First Visit: 10/28/2019 00:00 (04/23/2020 09:16:TRACY Kramer) 47c. Date of Last Visit: 04/23/2020 00:00 (04/23/2020 09:16:TRACY Kramer) 47d. Number of Visits: 10 (04/23/2020 09:16:TRACY Kramer) 48a. Number of Prev Live Births: 2 (04/23/2020 09:16:Edie Contreras RN) 48b. Now Livin (04/23/2020 09:16:Edie Contreras RN) 48c. Live Births Now : 0 (04/23/2020 09:16:QS system process) 48d. Date of Last Live : 08/04/2018 00:00 (04/23/2020 09:16:Edie Contreras RN) 48e. Losses: 0 (04/23/2020 09:16:Edie Contreras RN) RISK FACTORS IN THIS 49a. Diabetes: No (04/23/2020 09:16:Edie Contreras RN) 49b. Hypertension: No (04/23/2020 09:16:Edie Contreras RN) 49c. Previous Births: 0 (04/23/2020 09:16:Edie Contreras RN) 49d. Stillborns: No (04/23/2020 09:16:Edie Contreras RN) 49d. IUGR: No (04/23/2020 09:16:Edie Contreras RN) 49e. Infertility Treatment: No (04/23/2020 09:16:Edie Contreras RN) 49f. Previous Cesareans: 0 (04/23/2020 09:16:Edie Contreras RN) Mother's Height 50b. Height Inches: 59 (04/30/2020 09:17:QS system process) Mother's Weight 51a. Pre- Weight (lbs): 108 (04/23/2020 09:16:Edie Contreras RN) 51b. Weight at Delivery (lbs): 123 (04/30/2020 09:17:[employer] system process) 52. Dt Last Normal Menses Began: 08/01/2019 00:00 (04/23/2020 09:16:Nadiya Cooper RN) Infections Present/Treated 53a. Gonorrhea: No (04/23/2020 09:16:Edie Contreras RN) Results this Hospital Visit : Negative (04/23/2020 09:16:Nadiya Cooper RN) 53b. Syphilis: No (04/23/2020 09:16:Edie Contreras RN) 53c. Chlamydia: No (04/23/2020 09:16:Edie Contreras RN) Results this Hospital Visit: Negative (04/23/2020 09:16:Nadiya Cooper RN) 53d. Hepatitis B: No (04/23/2020 09:16:Edie Contreras RN) Results this Hospital Visit: Negative (04/23/2020 09:16:Nadiya Cooper RN) 53e. Hepatitis C: Negative (04/23/2020 09:16:Edie Contreras RN) 53h. Mother Tested for HBsAG: Yes (04/23/2020 09:16:Edie Contreras RN) 53i. Date Tested: 10/28/2019 00:00 (04/23/2020 09:16:Edie Contreras RN) 53j. Test Result: Negative (04/23/2020 09:16:Nadiya Cooper RN) Obstetric Procedures 54a, b, c. Obstetric Procedures: Ultrasound; NST; Doppler Flow Study (04/23/2020 09:16:Edie Contreras RN) Cigarette Smoking Cigarette Smoking: Never Smoker. [id number] (04/23/2020 09:16:Edie Contreras RN) 55a. 3 Months Before Preg - Ci (04/23/2020 09:16:Edie Contreras RN) 55a. Packs: 0 (04/23/2020 09:16:Edie Contreras RN) 55b. 1st Trimester of Preg- Ci (04/23/2020 09:16:Edie Contreras RN) 55b. Packs: 0 (04/23/2020 09:16:Edie Contreras RN) 55c. 2nd Trimester of Preg- Ci (04/23/2020 09:16:Edie Contreras RN) 55c. Packs: 0 (04/23/2020 09:16:Edie Contreras RN) 55d. 3rd Trimester of Preg- Ci (04/23/2020 09:16:Edie Contreras RN) 55d. Packs: 0 (04/23/2020 09:16:Edie Contreras RN) Onset of Labor 56a. PROM >12 Hrs: 3.10 (04/23/2020 09:16:QS system process) 56b. Precipitous Labor <3 Hrs: 3 (04/23/2020 09:16:QS system process) 56c. Prolonged Labor > 20 Hrs: 3 (04/23/2020 09:16:QS system process) 57a. Induction of Labor: Induction (04/23/2020 09:16:Edie Contreras RN) 57c. Non-Vertex Presentation A: Vertex (04/23/2020 09:16:Edie Contreras RN) 57d. Steroids - Lung Mat: None (04/23/2020 09:16:TRACY Kramer) 57d. Steroids - Lung Mat: Not Applicable (04/23/2020 09:16:TRACY Kramer) 57f. Mat [place] or Temp >100.4: 98.5 (04/23/2020 09:16:Edie Contreras RN) 57g. Moderate/Heavy Meconium: Clear (04/30/2020 16:03:Edie Contreras RN) 57h. Intolerance of Labor: N/A (04/23/2020 09:16:Edie Contreras RN) 57i. Epidural/Spinal Anesthesia: IV Sedation (04/23/2020 09:16:TRACY Kramer) Method of Delivery 58a. Forceps - Unsuccessful A: N/A (04/23/2020 09:16:Edie Contreras RN) 58b. Vacuum - Unsuccessful A: N/A (04/23/2020 09:16:Edei Contreras RN) 58c. Presentation at 58c. Presentation at - A : Vertex (04/23/2020 09:16:Edie Contreras RN) 58c. Presentation at - A : N/A (04/23/2020 09:16:Edie Contreras RN) 58c. Presentation at - A : Cephalic (04/30/2020 14:02:Edie Contreras RN) Final Route and Method of Del 58d. Baby A Route/Delivery: Vaginal (04/23/2020 09:16:Edie Contreras RN) 58e. Trial of Labor Attempted: No (04/23/2020 09:16:Maryse Victoria Bin) 58e. Trial of Labor Attempted A: N/A (04/23/2020 09:16:Edie Contreras RN) 58e. Trial of Labor Attempted B: N/A (04/23/2020 09:16:Edie Contreras RN) Maternal Morbidity 59b. 3rd or 4th Degree Lacs: None (04/23/2020 09:16:Edie Contreras RN) 59b. 3rd or 4th Degree Lacs: N/A (04/23/2020 09:16:Edie Contreras RN) Birthweight Baby A: 3070 (04/23/2020 09:16:Jennifer Jorge RN) 60a. Pounds : 6 (04/23/2020 09:16:QS system process) 60b. Ounces: 12 (04/23/2020 09:16:QS system process) 61. GA at Delivery Baby A: 39.0 (04/23/2020 09:16:TRACY Kramer) : Full Term- 39- 40.6 Weeks (04/23/2020 09:16:QS system process) 62a. 5 Minute Baby A: 9 (04/23/2020 09:16:QS system process)
[2020-04-30] MEDS: IBUPROFEN 800 MG TABLET PO SCH ×2 (23:25→23:27)
[2020-04-30] MEDS: METHYLERGONOVINE MALEATE 0.2 MG TABLET PO SCH (23:27)
[2020-04-30] MEDS: FAMOTIDINE 20 MG TABLET PO SCH (23:28)
[2020-05-01] MEDS: METHYLERGONOVINE MALEATE 0.2 MG TABLET PO SCH ×5 (00:37→21:39)
[2020-05-01] MEDS: IBUPROFEN 800 MG TABLET PO SCH ×3 (06:04→21:38)
[2020-05-01 07:39] LABS: HEMATOCRIT 27.3 % (36.0-47.0); HEMOGLOBIN 9.3 g/dL (12.0-15.5); MEAN CORPUSCULAR HEMOGLOBIN 29.3 pg (27.0-33.4); MEAN CORPUSCULAR HGB CONC 34.1 g/dL (32.0-36.0); MEAN CORPUSCULAR VOLUME 86 fl (80-97); PLATELET COUNT 172 10^3/uL (150-450); RED BLOOD COUNT 3.18 10^6/uL (3.72-5.28); RED CELL DISTRIBUTION WIDTH 13.4 % (11.5-14.0); WHITE BLOOD COUNT 11.5 10^3/uL (4.0-10.5)
--- NOTE | 2020-05-01 09:09 | PDOC PROGRESS REPORT ---
Subjective-OB Progress Note for:: 05/01/20 Subjective: Doing well, no c/o, hsb and baby in room, eating well, scant bleeding, anxious to go home Physical Exam (OB) Vital Signs: Temp Pulse Resp BP Pulse Ox 97.7 F 64 16 131/72 H 100 05/01/20 08:10 05/01/20 08:10 05/01/20 08:10 05/01/20 08:10 05/01/20 08:10 Intake & Output 04/30/20 05/01/20 05/02/20 06:59 06:59 06:59 Weight 55.5 kg - PIH/Pre-Eclampsia Clonus: Negative Headache: Absent Epigastric Pain: No Visual Changes: No - Maternal Morbidity 59. Maternal Morbidity (serious complications experinced by the mother associa joe with labor and delivery: None of the above - Lochia Lochia Amount: Scant < 10 ml Lochia Color: Rubra/Red - Abdomen Description: Soft, Round Hernia Present: No Fundal Description: Firm, Midline Fundal Height: u/u - u/2 Objective-Diagnostic Laboratory: 05/01/20 07:15 04/30/20 05/01/20 08:27 07:15 WBC 11.5 H RBC 3.18 L Hgb 9.3 L Hct 27.3 L MCV 86 MCH 29.3 MCHC 34.1 RDW 13.4 Plt Count 172 Blood Type A POSITIVE Antibody Screen NEGATIVE Assessment and Plan(PN) - Assessment and Plan (1) GBS (group B Streptococcus carrier), +RV culture, currently Is this a current diagnosis for this admission?: Yes (2) Vaginal delivery Is this a current diagnosis for this admission?: Yes (3) Anemia Qualifiers: Anemia type: iron deficiency Is this a current diagnosis for this admission?: Yes - Time Spent with Patient Time with patient: Less than 15 minutes Medications reviewed and adjusted accordingly: Yes - Disposition Anticipated Discharge Disposition: Home, Self Care Anticipated Discharge Timeframe: within 24 hours
[2020-05-01] MEDS: SENNOSIDES/DOCUSATE 8.6-50 MG 1 EACH TABLET PO SCH (09:37)
[2020-05-01] MEDS: FAMOTIDINE 20 MG TABLET PO SCH ×2 (09:37→21:38)
[2020-05-01] MEDS: FERROUS SULFATE 325 MG TABLET PO SCH ×2 (09:37→17:32)
[2020-05-01] MEDS: PRENATAL VITAMIN W DHA CAPSULE PO SCH (09:37)
[2020-05-01] MEDS: DOCUSATE SODIUM 100 MG CAPSULE PO SCH ×2 (09:38→17:32)
[2020-05-02] MEDS: METHYLERGONOVINE MALEATE 0.2 MG TABLET PO SCH (02:23)
[2020-05-02] MEDS: IBUPROFEN 800 MG TABLET PO SCH ×2 (05:22→14:13)
[2020-05-02] MEDS: FAMOTIDINE 20 MG TABLET PO SCH (09:22)
[2020-05-02] MEDS: SENNOSIDES/DOCUSATE 8.6-50 MG 1 EACH TABLET PO SCH (09:22)
[2020-05-02] MEDS: DOCUSATE SODIUM 100 MG CAPSULE PO SCH (09:22)
[2020-05-02] MEDS: FERROUS SULFATE 325 MG TABLET PO SCH (09:22)
[2020-05-02] MEDS: PRENATAL VITAMIN W DHA CAPSULE PO SCH (09:22)
--- NOTE | 2020-05-02 11:35 | PDOC DISCHARGE SUMMARY ---
Impression - Admit/DC Date/PCP Admission Date/Primary Care Provider: 04/30/20 08:05 Discharge Date: 05/02/20 - Discharge Diagnosis (1) Anemia complicating , third trimester Is this a current diagnosis for this admission?: Yes (2) GBS (group B Streptococcus carrier), +RV culture, currently Is this a current diagnosis for this admission?: Yes (3) Shoulder dystocia during labor and delivery, delivered Is this a current diagnosis for this admission?: Yes (4) Vaginal delivery Is this a current diagnosis for this admission?: Yes - Assessment Summary: 24yo G3 now P3 s/p pp 2 stable and ready for discharge, denies any concerns, understands warning s/s - Additional Information Resuscitation Status: Full Code Discharge Diet: As Tolerated, Regular Discharge Activity: Activity As Tolerated, Balance Activity w/Rest, No Lifting Over 10 Pounds, Pelvic Rest, No tub bath, Walk Frequently Prescriptions: Ibuprofen [Motrin 800 mg Tablet] 800 mg PO Q8HP PRN #20 tablet PRN Reason: For Pain Scale 1-3 Docusate Sodium [Colace 100 mg Capsule] 100 mg PO BID #60 capsule Ferrous Sulfate [Feosol 325 mg Tablet] 325 mg PO BID #60 tablet Home Medications: Pnv No.95/Ferrous Fum/Folic AC [ Formula Tablet] 1 tab PO QAM 02/26/16 Docusate Sodium [Colace 100 mg Capsule] 100 mg PO BID #60 capsule 05/02/20 Ferrous Sulfate [Feosol 325 mg Tablet] 325 mg PO BID #60 tablet 05/02/20 Ibuprofen [Motrin 800 mg Tablet] 800 mg PO Q8HP PRN #20 tablet 05/02/20 Hospital Course 59. Maternal Morbidity (serious complications experinced by the mother associated with labor and delivery: None of the above Results Laboratory Results: WBC 11.5 10^3/uL (4.0-10.5) H 05/01/20 07:15 RBC 3.18 10^6/uL (3.72-5.28) L 05/01/20 07:15 Hgb 9.3 g/dL (12.0-15.5) L 05/01/20 07:15 Hct 27.3 % (36.0-47.0) L 05/01/20 07:15 MCV 86 fl (80-97) 05/01/20 07:15 MCH 29.3 pg (27.0-33.4) 05/01/20 07:15 MCHC 34.1 g/dL (32.0-36.0) 05/01/20 07:15 RDW 13.4 % (11.5-14.0) 05/01/20 07:15 Plt Count 172 10^3/uL (150-450) 05/01/20 07:15 Lymph % (Auto) 23.3 % (13-45) 04/30/20 08:27 [place] % (Auto) 5.7 % (3-13) 04/30/20 08:27 Eos % (Auto) 0.6 % (0-6) 04/30/20 08:27 Baso % (Auto) 0.6 % (0-2) 04/30/20 08:27 Absolute Neuts (auto) 4.6 10^3/uL (1.7-8.2) 04/30/20 08:27 Absolute Lymphs (auto) 1.5 10^3/uL (0.5-4.7) 04/30/20 08:27 Absolute Monos (auto) 0.4 10^3/uL (0.1-1.4) 04/30/20 08:27 Absolute Eos (auto) 0.0 10^3/uL (0.0-0.6) 04/30/20 08:27 Absolute Basos (auto) 0.0 10^3/uL (0.0-0.2) 04/30/20 08:27 Seg Neutrophils % 69.8 % (42-78) 04/30/20 08:27 Urine Color SKYLER 04/30/20 08:15 Urine Appearance CLOUDY 04/30/20 08:15 Urine pH 6.0 (5.0-9.0) 04/30/20 08:15 Ur Specific [place] 1.026 04/30/20 08:15 Urine Protein 30 mg/dL (NEGATIVE) H 04/30/20 08:15 Urine Glucose (UA) NEGATIVE mg/dL (NEGATIVE) 04/30/20 08:15 Urine Ketones NEGATIVE mg/dL (NEGATIVE) 04/30/20 08:15 Urine Blood NEGATIVE (NEGATIVE) 04/30/20 08:15 Urine Nitrite NEGATIVE (NEGATIVE) 04/30/20 08:15 Urine Bilirubin NEGATIVE (NEGATIVE) 04/30/20 08:15 Urine Urobilinogen 2.0 mg/dL (<2.0) H 04/30/20 08:15 Ur Leukocyte Esterase LARGE (NEGATIVE) H 04/30/20 08:15 Urine Ascorbic Acid NEGATIVE (NEGATIVE) 04/30/20 08:15 Urine Opiates Screen NEGATIVE 04/30/20 08:15 Urine Methadone Screen NEGATIVE 04/30/20 08:15 Ur Barbiturates Screen NEGATIVE 04/30/20 08:15 Ur Phencyclidine Scrn NEGATIVE 04/30/20 08:15 Ur Amphetamines Screen NEGATIVE 04/30/20 08:15 U Benzodiazepines Scrn NEGATIVE 04/30/20 08:15 Urine Cocaine Screen NEGATIVE 04/30/20 08:15 U Marijuana (THC) Screen NEGATIVE 04/30/20 08:15 RPR NONREACTIVE (NONREACTIVE) 04/30/20 08:27 Blood Type A POSITIVE 04/30/20 08:27 Antibody Screen NEGATIVE 04/30/20 08:27
[2020-05-02 13:54] VITALS: BP 130/72
== END 2020-05-02 14:42 | disposition home or self-care (01) | DRG 807 ==
LOC: LR 08:05 → 2S 23:10
PROVIDERS: ADMIT Obstetrics & Gynecology; ATTEND Obstetrics & Gynecology
PROC: 10E0XZZ Delivery of Products of Conception, External Approach (ICD-10-PCS; principal; 2020-05-02)
PROC: 3E0234Z Introduction of Serum, Toxoid and Vaccine into Muscle, Percutaneous Approach (ICD-10-PCS; 2020-05-02)
DX: O69.1XX0 Labor and delivery complicated by cord around neck, with compression, not applicable or unspecified (principal); O66.0 Obstructed labor due to shoulder dystocia; Z37.0 Single live birth; O99.02 Anemia complicating childbirth; O99.824 Streptococcus B carrier state complicating childbirth; D50.9 Iron deficiency anemia, unspecified; O36.8330 Maternal care for abnormalities of the fetal heart rate or rhythm, third trimester, not applicable or unspecified; Z23 Encounter for immunization
CPT/HCPCS: 36415; 80307; 81005; 85025; 85027; 86592; 86850; 86900; 86901; 88307; 90707; 94760; J2300; J2550; J2590; J3490